=== PATIENT | female | born 1950 | race Caucasian/White ===

== ENCOUNTER → 2019-05-31 | Outpatient (CLI) | payer MEDICARE, OTHER ==
[2019-06-02 15:07] LABS: HPV 16 Negative (Negative); HPV 18 Negative (Negative); HPV OTHER HR TYPES Negative (Negative)
== END | disposition home or self-care (01) ==
LOC: LAB 10:53 → LAB SHORT 10:53
PROVIDERS: Advanced Practice Midwife
DX: Z01.419 Encounter for gynecological examination (general) (routine) without abnormal findings (principal)
CPT/HCPCS: 87624; G0123

== ENCOUNTER → 2019-07-15 | Outpatient (CLI) | payer MEDICARE, OTHER | END | disposition home or self-care (01) | LOC: PLD 11:50 → LAB SHORT 11:50 | DX: D48.5 Neoplasm of uncertain behavior of skin (principal) | CPT/HCPCS: 88305 ==

== ENCOUNTER → 2020-03-29 | Outpatient (CLI) | payer MEDICARE, OTHER ==
[2020-03-29 15:06] LABS: Adenovirus F 40/41 Not Detected (NOT DETECT); Astrovirus Not Detected (NOT DETECT); Campylobacter Sp Not Detected (NOT DETECT); Cryptosporidium Not Detected (NOT DETECT); Cyclospora Cayetanensis Not Detected (NOT DETECT); E. Coli O157 Not Detected (NOT DETECT); Entamoeba Histolytica Not Detected (NOT DETECT); Enteroaggregative E. coli-EAEC Not Detected (NOT DETECT); Enteropathogenic E. coli-EPEC Not Detected (NOT DETECT); Enterotoxigenic E. coli-ETEC Not Detected (NOT DETECT); Giardia Lamblia Not Detected (NOT DETECT); Norovirus GI/GII Not Detected (NOT DETECT); Plesiomonas Shigelloides Not Detected (NOT DETECT); Rotavirus A Not Detected (NOT DETECT); Salmonella Sp Not Detected (NOT DETECT); Sapovirus Not Detected (NOT DETECT); Shiga Toxin-prod E. coli-STEC Not Detected (NOT DETECT); Shigella/Enteroin E. coli-EIEC Not Detected (NOT DETECT); Vibrio Cholerae Not Detected (NOT DETECT); Vibrio Sp Not Detected (NOT DETECT); Yersinia Enterocolitica Not Detected (NOT DETECT)
== END ==
LOC: LAB 13:41 → LAB SHORT 13:41
PROVIDERS: Emergency Medicine
DX: R19.7 Diarrhea, unspecified (principal)
CPT/HCPCS: 0097U

== ENCOUNTER 2022-01-24 18:16 | Emergency (ER) | payer MEDICARE ==
[~2022-01-24] VITALS: Ht 170.2 cm; Wt 72.6 kg
[2022-01-24 20:41] LABS: Source, Urine Clean Catch
[2022-01-24 20:44] LABS: Appearance, Urine Hazy (Clear); Bilirubin, Urine Neg (Neg); Blood, Urine 2+ (Neg); Color, Urine Yellow (P-Yellow); Glucose Qualitative, Urine Neg (Neg); Ketones, Urine Neg (Neg); Leukocyte Esterase, Urine 2+ (Neg); Nitrite, Urine Pos (Neg); Protein, Urine 1+ (Neg); Urobilinogen, Urine NORM (Normal); pH, Urine 6.5 (5.0-8.0)
[2022-01-24 20:50] LABS: Bacteria Many /hpf; Hyaline Casts 0-2 /lpf (0-2); Squamous Epithelial Cells Few /hpf (Few)
[2022-01-24 22:40] LABS: Albumin, Blood 3.5 g/dL (3.4-5.0); Albumin/Globulin Ratio 0.9 (0.8-1.8); Bilirubin, Total 0.3 mg/dL (0.1-1.0); Bun/Creatinine Ratio 24.9 (12.0-20.0); Calcium, Blood 9.3 mg/dL (8.5-10.1); Creatinine, Blood 0.68 mg/dL (0.40-1.00); Potassium, Blood 4.5 mmol/L (3.5-5.5); Total Protein, Blood 7.5 g/dL (6.4-8.2)
[2022-01-24] MEDS ORDERED: CEPH500 PO (23:27)
[2022-01-25] MEDS ORDERED: CEPH500 PO (00:10)
[2022-01-25 00:51] LABS: Influenza A, PCR NEGATIVE (NEGATIVE); Influenza B, PCR NEGATIVE (NEGATIVE); Resp Syncytial Virus, PCR NEGATIVE (NEGATIVE); SARS-Cov-2 (COVID-19) PCR, MMC NEGATIVE (NEGATIVE)
== END 2022-01-25 00:15 | disposition home or self-care (01) ==
LOC: ER 18:16
PROVIDERS: Physician Assistant; Student in an Organized Health Care Education/Training Program
DX: N39.0 Urinary tract infection, site not specified (principal); R53.1 Weakness; Z88.5 Allergy status to narcotic agent; Z20.822 Contact with and (suspected) exposure to COVID-19
CPT/HCPCS: 0241U; 80053; 81001; 83735; 87077; 87086; 87186; 96360; 99284-25; A9270; J0696; J7030

== ENCOUNTER 2022-02-10 17:53 | Emergency (ER) | payer MEDICARE ==
[~2022-02-10] VITALS: Ht 170.2 cm; Wt 79.4 kg
[~2022-02-10 17:53] MED LIST: CEPH500 PO
[2022-02-10] MEDS ORDERED: OLAN2.5 PO (20:37)
[2022-02-10] MEDS ORDERED: CITALOPRAM HBR10 MG PO (20:37)
[2022-02-10] MEDS ORDERED: Diclofenac Sodi25 MG (20:37)
[2022-02-10] MEDS ORDERED: CODACE30 PO (20:38)
[2022-02-10] MEDS ORDERED: Primidone50 MG PO (20:38)
== END 2022-02-10 21:24 | disposition home or self-care (01) ==
LOC: ER 17:53
DX: S93.402A Sprain of unspecified ligament of left ankle, initial encounter (principal); W10.9XXA Fall (on) (from) unspecified stairs and steps, initial encounter; F03.90 Unspecified dementia, unspecified severity, without behavioral disturbance, psychotic disturbance, mood disturbance, and anxiety; Z88.5 Allergy status to narcotic agent; Z79.899 Other long term (current) drug therapy
CPT/HCPCS: 73610

== ENCOUNTER 2022-04-18 04:14 | Emergency (ER) | payer OTHER, MEDICARE ==
[~2022-04-18] VITALS: Ht 170.2 cm; Wt 77.1 kg
[~2022-04-18 04:14] MED LIST changes: +CITALOPRAM HBR10 MG PO; +CODACE30 PO; +Diclofenac Sodi25 MG; +OLAN2.5 PO; +Primidone50 MG PO
[2022-04-18 05:46] LABS: BASOPHILS ABSOLUTE AUTO 0.01 K/mm3 (0.00-0.23); BASOPHILS PERCENT AUTO 0 % (0-2); EOSINOPHILS ABSOLUTE AUTO 0.12 K/mm3 (0.00-0.68); EOSINOPHILS PERCENT AUTO 1 % (0-6); Hematocrit 38.2 % (33.0-51.0); Hemoglobin 12.5 g/dL (11.5-16.0); IMMATURE GRAN ABSOLUTE AUTO 0.03 K/mm3 (0.00-0.10); IMMATURE GRAN PERCENT AUTO 0 % (0-1); LYMPHOCYTES ABSOLUTE AUTO 2.57 K/mm3 (0.84-5.20); LYMPHOCYTES PERCENT AUTO 28 % (21-46); MONOCYTES ABSOLUTE AUTO 0.74 K/mm3 (0.16-1.47); MONOCYTES PERCENT AUTO 8 % (4-13); Mean Corpuscular HGB 29.8 pg (26.0-34.0); Mean Corpuscular HGB Conc 32.7 g/dL (31.5-36.5); Mean Corpuscular Volume 91 fL (80-100); Mean Platelet Volume 9.2 fL (9.1-12.4); NEUTROPHILS PERCENT AUTO 63 % (41-73); Platelet Count 269 K/mm3 (150-400); RDW Standard Deviation 43.7 fL (35.1-46.3); Red Blood Cell Count 4.19 M/mm3 (3.80-5.20); White Blood Cell Count 9.27 K/mm3 (4.00-11.30)
[2022-04-18 06:09] LABS: Albumin, Blood 3.5 g/dL (3.4-5.0); Albumin/Globulin Ratio 0.9 (0.8-1.8); Bilirubin, Total 0.3 mg/dL (0.1-1.0); Creatinine, Blood 0.69 mg/dL (0.40-1.00); Globulin, Blood 3.7 g/dL (2.2-4.0); Potassium, Blood 4.2 mmol/L (3.5-5.5); Total Protein, Blood 7.2 g/dL (6.4-8.2)
== END 2022-04-18 08:05 | disposition home or self-care (01) ==
LOC: ER 04:14
PROVIDERS: Student in an Organized Health Care Education/Training Program
DX: S01.81XA Laceration without foreign body of other part of head, initial encounter (principal); Z23 Encounter for immunization; Z88.5 Allergy status to narcotic agent; Z79.899 Other long term (current) drug therapy; W01.0XXA Fall on same level from slipping, tripping and stumbling without subsequent striking against object, initial encounter
CPT/HCPCS: 36415; 70450; 72125; 80053; 85025; 90714; 93005; 93010

== ENCOUNTER → 2023-02-27 | Outpatient (CLI) | payer MEDICARE ==
[2023-02-27 17:30] LABS: BASOPHILS PERCENT AUTO 0 % (0-2); EOSINOPHILS ABSOLUTE AUTO 0.12 K/mm3 (0.00-0.68); EOSINOPHILS PERCENT AUTO 2 % (0-6); Hematocrit 41.7 % (33.0-51.0); Hemoglobin 13.4 g/dL (11.5-16.0); IMMATURE GRAN ABSOLUTE AUTO 0.02 K/mm3 (0.00-0.10); IMMATURE GRAN PERCENT AUTO 0 % (0-1); LYMPHOCYTES ABSOLUTE AUTO 2.85 K/mm3 (0.84-5.20); LYMPHOCYTES PERCENT AUTO 35 % (21-46); MONOCYTES ABSOLUTE AUTO 0.55 K/mm3 (0.16-1.47); MONOCYTES PERCENT AUTO 7 % (4-13); Mean Corpuscular HGB 30.2 pg (26.0-34.0); Mean Corpuscular HGB Conc 32.1 g/dL (31.5-36.5); Mean Corpuscular Volume 94 fL (80-100); Mean Platelet Volume 10.3 fL (9.1-12.4); NEUTROPHILS ABSOLUTE AUTO 4.73 K/mm3 (1.96-9.15); NEUTROPHILS PERCENT AUTO 57 % (41-73); Platelet Count 264 K/mm3 (150-400); RDW Coefficient Variation 12.5 % (11.7-14.2); RDW Standard Deviation 43.3 fL (35.1-46.3); Red Blood Cell Count 4.44 M/mm3 (3.80-5.20); White Blood Cell Count 8.27 K/mm3 (4.00-11.30)
[2023-02-27 18:34] LABS: Albumin, Blood 3.8 g/dL (3.4-5.0); Albumin/Globulin Ratio 1.1 (0.8-1.8); Bilirubin, Total 0.3 mg/dL (0.1-1.0); Bun/Creatinine Ratio 22.6 (12.0-20.0); Calcium, Blood 9.8 mg/dL (8.5-10.1); Creatinine, Blood 0.93 mg/dL (0.40-1.00); Globulin, Blood 3.4 g/dL (2.2-4.0); Potassium, Blood 4.5 mmol/L (3.5-5.5); Thyroid Stimulating Hormone 0.721 uIU/mL (0.360-4.800); Total Protein, Blood 7.2 g/dL (6.4-8.2)
== END ==
LOC: LAB SHORT 13:51 → LAB 13:51
PROVIDERS: Family Medicine
DX: R53.1 Weakness (principal)
CPT/HCPCS: 80053; 83036; 84443; 85025

== ENCOUNTER 2023-04-15 07:30 | Inpatient (IN) | payer MEDICARE, OTHER ==
[2023-04-15] VITALS (16 sets, daily range): BP systolic 106–148; BP diastolic 46–81
[~2023-04-15] VITALS: Ht 167.6 cm; Wt 88.0 kg
[2023-04-15] MEDS ORDERED: Celexa20 MG PO (07:46)
[2023-04-15] MEDS ORDERED: Diclofenac Sod100 MG PO (07:47)
[2023-04-15] MEDS ORDERED: Primidone50 MG PO (07:47)
[2023-04-15] MEDS ORDERED: NASACORT10.8 ML NS (07:47)
[2023-04-15] MEDS ORDERED: ACET500 PO (07:48)
[2023-04-15] MEDS ORDERED: Vitamin B Comple1 EA PO (07:48)
[2023-04-15] MEDS ORDERED: MEMA5TAB PO (07:48)
[2023-04-15] MEDS ORDERED: OLAN5 PO (07:48)
[2023-04-15] MEDS ORDERED: ALBU8HFA2 INH (07:49)
[2023-04-15] MEDS ORDERED: METAMUCIL POWD798 GM PO (07:50)
[2023-04-15] MEDS ORDERED: LOMOTIL 2.5-0.1 EACH PO (07:50)
[2023-04-15] MEDS ORDERED: OLAN2.5 PO (07:50)
[2023-04-15] MEDS ORDERED: LIDO700A20 TOP (08:26)
[2023-04-15 09:24] LABS: BASOPHILS ABSOLUTE AUTO 0.01 K/mm3 (0.00-0.23); BASOPHILS PERCENT AUTO 0 % (0-2); EOSINOPHILS ABSOLUTE AUTO 0.01 K/mm3 (0.00-0.68); EOSINOPHILS PERCENT AUTO 0 % (0-6); Hematocrit 42.8 % (33.0-51.0); Hemoglobin 13.8 g/dL (11.5-16.0); IMMATURE GRAN ABSOLUTE AUTO 0.03 K/mm3 (0.00-0.10); IMMATURE GRAN PERCENT AUTO 0 % (0-1); LYMPHOCYTES ABSOLUTE AUTO 3.41 K/mm3 (0.84-5.20); LYMPHOCYTES PERCENT AUTO 33 % (21-46); MONOCYTES ABSOLUTE AUTO 0.57 K/mm3 (0.16-1.47); MONOCYTES PERCENT AUTO 6 % (4-13); Mean Corpuscular HGB 29.9 pg (26.0-34.0); Mean Corpuscular HGB Conc 32.2 g/dL (31.5-36.5); Mean Corpuscular Volume 93 fL (80-100); Mean Platelet Volume 9.7 fL (9.1-12.4); NEUTROPHILS ABSOLUTE AUTO 6.35 K/mm3 (1.96-9.15); NEUTROPHILS PERCENT AUTO 61 % (41-73); Platelet Count 271 K/mm3 (150-400); RDW Coefficient Variation 12.9 % (11.7-14.2); RDW Standard Deviation 43.9 fL (35.1-46.3); Red Blood Cell Count 4.61 M/mm3 (3.80-5.20); White Blood Cell Count 10.38 K/mm3 (4.00-11.30)
[2023-04-15 09:38] LABS: Albumin, Blood 3.6 g/dL (3.4-5.0); Albumin/Globulin Ratio 0.9 (0.8-1.8); Bilirubin, Total 0.4 mg/dL (0.1-1.0); Bun/Creatinine Ratio 25.5 (12.0-20.0); Calcium, Blood 9.5 mg/dL (8.5-10.1); Creatinine, Blood 0.86 mg/dL (0.40-1.00); Potassium, Blood 4.5 mmol/L (3.5-5.5); Total Protein, Blood 7.6 g/dL (6.4-8.2)
[2023-04-15 10:03] LABS: International Normalized Ratio 1.01; Prothrombin Time Results 10.6 Sec (9.7-11.5)
[2023-04-15 10:42] LABS: Bilirubin, Urine Neg (Neg); Blood, Urine 2+ (Neg); Glucose Qualitative, Urine Neg (Neg); Ketones, Urine Neg (Neg); Leukocyte Esterase, Urine Neg (Neg); Nitrite, Urine Pos (Neg); Protein, Urine Neg (Neg); Source, Urine Foley catheter; Specific Gravity, Urine 1.015 (1.003-1.022); Urobilinogen, Urine NORM (Normal)
[2023-04-15 10:53] LABS: Appearance, Urine Hazy (Clear); Color, Urine Yellow (P-Yellow)
[2023-04-15 10:54] LABS: Bacteria Few /hpf; Squamous Epithelial Cells Few /hpf (Few); White Blood Cells, Urine 0-2 /hpf (0-5)
[2023-04-15] MEDS ORDERED: VITAMIN D350 MC3 PO (14:13)
--- NOTE | 2023-04-15 14:59 | NUR ---
PT TO PRE OP
--- NOTE | 2023-04-15 16:40 | NUR ---
04/15/23 Brittney Cabrera PT HAD POZO CATHETER IN PLACE UPON ENTRY TO OR.
--- NOTE | 2023-04-15 18:31 | NUR ---
PT ARRIVED TO RM 214 FROM PACU IN BED. SLEEPY BUT OPENS EYES TO VOICE. VSS. DRESSINGS TO L HIP CDI. BED ALARM ON, CALL LIGHT IN REACH.
[2023-04-16 02:31] VITALS: BP 102/58
[2023-04-16 03:55] VITALS: BP 110/52
[2023-04-16 04:52] LABS: BASOPHILS ABSOLUTE AUTO 0.01 K/mm3 (0.00-0.23); BASOPHILS PERCENT AUTO 0 % (0-2); EOSINOPHILS PERCENT AUTO 0 % (0-6); Hemoglobin 10.6 g/dL (11.5-16.0); IMMATURE GRAN ABSOLUTE AUTO 0.04 K/mm3 (0.00-0.10); IMMATURE GRAN PERCENT AUTO 0 % (0-1); LYMPHOCYTES ABSOLUTE AUTO 2.02 K/mm3 (0.84-5.20); LYMPHOCYTES PERCENT AUTO 18 % (21-46); MONOCYTES ABSOLUTE AUTO 0.78 K/mm3 (0.16-1.47); MONOCYTES PERCENT AUTO 7 % (4-13); Mean Corpuscular HGB 30.3 pg (26.0-34.0); Mean Corpuscular HGB Conc 33.1 g/dL (31.5-36.5); Mean Corpuscular Volume 91 fL (80-100); Mean Platelet Volume 9.9 fL (9.1-12.4); NEUTROPHILS ABSOLUTE AUTO 8.21 K/mm3 (1.96-9.15); NEUTROPHILS PERCENT AUTO 74 % (41-73); Platelet Count 204 K/mm3 (150-400); RDW Standard Deviation 42.7 fL (35.1-46.3); White Blood Cell Count 11.06 K/mm3 (4.00-11.30)
[2023-04-16 05:37] LABS: Bun/Creatinine Ratio 29.3 (12.0-20.0); Calcium, Blood 8.5 mg/dL (8.5-10.1); Creatinine, Blood 0.92 mg/dL (0.40-1.00); Potassium, Blood 4.3 mmol/L (3.5-5.5)
--- NOTE | 2023-04-16 06:40 | NUR ---
SHIFT SUMMARY PT IS POD#1 FOR LEFT HIP FX (INTERMEDULLARY TROCHANTERIC NAIL). PT IS FROM [facility] AND SHE HAS NOT RESPONDED TO VERBAL INTERACTIONS MUCH THIS SHIFT AND SEEMS TO RESPOND BETTER TO FEMALE STAFF THAN THIS RN. PT REPEATEDLY REMOVED HER O2 NC AND HER OXYGEN SATURATION WOULD DIP INTO THE MID 80'S. JONN GALE WENT INTO THE PT'S ROOM SEVERAL TIMES TO ASSIST THE PT IN KEEPING HER OXYGEN ON. URINE OUTPUT HAS BEEN A GAFFNEY YELLOW COLOR. POST OP VS HAVE BEEN STABLE. PT REQUIRES EATING/DRINKING SUPERVISION, BUT TOOK HER MEDICATIONS WELL WITH SMALL SIPS OF WATER. PT HAD AN EARLY IN THE SHIFT COMPLAINT OF NAUSEA, BUT NO OTHER COMPLAINTS THROUGHOUT THE SHIFT.
[2023-04-16 07:35] VITALS: BP 109/58
[2023-04-16 14:47] VITALS: BP 108/59
--- NOTE | 2023-04-16 15:15 | NUR ---
SHIFT SUMMARY: POD 1 LEFT HIP PINNING PATIENT IS A&O TO SELF WITH HX OF DEMENTIA. PATIENT CAN FOLLOW BASIC COMMANDS AND RESPONDS WITH GRUNTING/MOANING. PAIN IS MANAGED WITH PO TYLENOL. HER LEFT HIP HAS AN AQUACEL THAT IS C/D/I. SHE IS A 2 PERSON SBA WITH FWW AND CONSTANT INSTRUCTIONS GIVEN. PATIENT IS TOLERATING PO INTAKE, BUT HAS TO BE GIVEN SMALL BITES TO AVOID CHOKING. PATIENT HAS BEEN SITTING UP IN THE RECLINER MOST OF THIS SHIFT AND IS TOLERATING IT WELL. SHE IS LAYING IN RECLINER WITH LEGS ELEVATED AND CALL LIGHT WITHIN REACH WELL TAB ALARM IN PLACE.
[2023-04-16 19:26] VITALS: BP 125/51
[2023-04-17 02:52] VITALS: BP 115/56
--- NOTE | 2023-04-17 04:30 | NUR ---
SHIFT SUMMARY POD 2 L HIP PINNING PT RESTED T/O NIGHT. PT UNABLE TO VOID, BLADDER SCANNED AT 2330, 530mL. HAD TO STRAIGHT CATH, HAD 600mL OUT, PT TOLERATED WELL. PAIN MANAGED PER EMAR. AQUACEL TO L HIP WITH SOME LIGHT DRAINAGE AND INTACT, AQUACEL TO L THIGH C/D/I. VSS. NO OTHER CONCERNS AT THIS TIME. CALL LIGHT WITHIN REACH.
[2023-04-17 04:55] LABS: BASOPHILS ABSOLUTE AUTO 0.01 K/mm3 (0.00-0.23); BASOPHILS PERCENT AUTO 0 % (0-2); EOSINOPHILS PERCENT AUTO 0 % (0-6); Hematocrit 28.7 % (33.0-51.0); Hemoglobin 9.3 g/dL (11.5-16.0); IMMATURE GRAN ABSOLUTE AUTO 0.04 K/mm3 (0.00-0.10); IMMATURE GRAN PERCENT AUTO 0 % (0-1); LYMPHOCYTES ABSOLUTE AUTO 2.68 K/mm3 (0.84-5.20); LYMPHOCYTES PERCENT AUTO 26 % (21-46); MONOCYTES ABSOLUTE AUTO 1.04 K/mm3 (0.16-1.47); MONOCYTES PERCENT AUTO 10 % (4-13); Mean Corpuscular HGB 30.3 pg (26.0-34.0); Mean Corpuscular HGB Conc 32.4 g/dL (31.5-36.5); Mean Corpuscular Volume 94 fL (80-100); Mean Platelet Volume 9.8 fL (9.1-12.4); NEUTROPHILS ABSOLUTE AUTO 6.44 K/mm3 (1.96-9.15); NEUTROPHILS PERCENT AUTO 63 % (41-73); Platelet Count 146 K/mm3 (150-400); RDW Standard Deviation 44.3 fL (35.1-46.3); Red Blood Cell Count 3.07 M/mm3 (3.80-5.20); White Blood Cell Count 10.21 K/mm3 (4.00-11.30)
[2023-04-17 05:26] LABS: Bun/Creatinine Ratio 30.4 (12.0-20.0); Calcium, Blood 8.3 mg/dL (8.5-10.1); Creatinine, Blood 0.85 mg/dL (0.40-1.00); Potassium, Blood 3.9 mmol/L (3.5-5.5)
[2023-04-17 07:04] VITALS: BP 103/52
[2023-04-17 14:56] VITALS: BP 107/65
--- NOTE | 2023-04-17 19:23 | NUR ---
SHIFT SUMMARY POD2 L HIP PINNING, A/OX 1-2, VSS, TOLERATING PO BUT WAS HAVING DIFFICULTY CHEWING WHOLE CHICKEN BREAST, DIET ORDER CHANGED TO [facility] SOFT, UP TO CHAIR WITH 2 PERSON MODERATE ASSIST, DOES NOT FOLLOW WEIGHT BEARING STATUS, STAND PIVOT TO CHAIR, PIAN MANAGED PER EMAR. NO ACUTE EVENTS THIS SHIFT, CALL LIGHT IN REACH.
[2023-04-17 19:24] VITALS: BP 112/63
[2023-04-18 04:29] VITALS: BP 112/71
[2023-04-18 06:05] LABS: BASOPHILS ABSOLUTE AUTO 0.01 K/mm3 (0.00-0.23); BASOPHILS PERCENT AUTO 0 % (0-2); EOSINOPHILS ABSOLUTE AUTO 0.01 K/mm3 (0.00-0.68); EOSINOPHILS PERCENT AUTO 0 % (0-6); Hematocrit 27.3 % (33.0-51.0); Hemoglobin 8.9 g/dL (11.5-16.0); IMMATURE GRAN ABSOLUTE AUTO 0.03 K/mm3 (0.00-0.10); IMMATURE GRAN PERCENT AUTO 0 % (0-1); LYMPHOCYTES ABSOLUTE AUTO 2.94 K/mm3 (0.84-5.20); LYMPHOCYTES PERCENT AUTO 32 % (21-46); MONOCYTES ABSOLUTE AUTO 0.83 K/mm3 (0.16-1.47); MONOCYTES PERCENT AUTO 9 % (4-13); Mean Corpuscular HGB 30.1 pg (26.0-34.0); Mean Corpuscular HGB Conc 32.6 g/dL (31.5-36.5); Mean Corpuscular Volume 92 fL (80-100); Mean Platelet Volume 9.7 fL (9.1-12.4); NEUTROPHILS ABSOLUTE AUTO 5.27 K/mm3 (1.96-9.15); NEUTROPHILS PERCENT AUTO 58 % (41-73); Platelet Count 175 K/mm3 (150-400); RDW Coefficient Variation 12.9 % (11.7-14.2); RDW Standard Deviation 43.4 fL (35.1-46.3); Red Blood Cell Count 2.96 M/mm3 (3.80-5.20); White Blood Cell Count 9.09 K/mm3 (4.00-11.30)
[2023-04-18 06:33] LABS: Bun/Creatinine Ratio 21.6 (12.0-20.0); Calcium, Blood 8.4 mg/dL (8.5-10.1); Creatinine, Blood 0.79 mg/dL (0.40-1.00); Potassium, Blood 3.6 mmol/L (3.5-5.5)
[2023-04-18 07:08] VITALS: BP 133/69
--- NOTE | 2023-04-18 07:08 | NUR ---
SHIFT SUMMARY PT DID WELL OVERNIGHT WITH NO ACUTE EVENTS OCCURRING. PT ABLE TO FREELY URINATE AFTER BEING BLADDER SCANNED EARLIER IN THE MORNING. VSS. BED IS IN LOWEST POSITION, CALL LIGHT IS WITHIN REACH.
[2023-04-18 14:51] VITALS: BP 130/57
--- NOTE | 2023-04-18 15:46 | NUR ---
SHIFT SUMMARY: POD 3 LEFT HIP PINNING NO SIGNIFICANT CHANGES DURING SHIFT. PATIENT IS ABLE TO MAKE NEEDS KNOWN AND IS SPEAKING FULL SENTENCES WITH OCCASIONAL GRUNTS. PAIN IS MANAGED WITH TYLENOL PO. HER LEFT HIP HAS X2 AQUACELS THAT WERE CHANGED THIS MORNING AND ARE C/D/I. SHE IS A 2 PERSON ASSIST WITH FWW AND GAIT BELT. PATIENT TOLERATED BEING IN RECLINER CHAIR. SHE IS NOW LAYING IN BED WITH CALL LIGHT IN REACH. PATIENT IS VOIDING AND HAD A BM THIS MORNING. THE PLAN IS TO DISCHARGE BACK TO HER FACILITY AT [facility] ON FRIDAY WITH HOME HEALTH IF STILL APPROPRIATE.
[2023-04-18 19:38] VITALS: BP 123/59
[2023-04-19 05:07] VITALS: BP 114/63
--- NOTE | 2023-04-19 05:54 | NUR ---
NOC SHIFT SUMMARY: PT. WILL DISCHARGE BACK TO [place] ON FRIDAY. PATIENT IS ALERT TO SELF ONLY. PATIENT A 2 PERSON ASSIST. NO C/O PAIN. INCONTINENT OF BOWEL AND BLADDER.
[2023-04-19 07:08] VITALS: BP 131/63
[2023-04-19 08:26] LABS: BASOPHILS ABSOLUTE AUTO 0.01 K/mm3 (0.00-0.23); BASOPHILS PERCENT AUTO 0 % (0-2); EOSINOPHILS ABSOLUTE AUTO 0.01 K/mm3 (0.00-0.68); EOSINOPHILS PERCENT AUTO 0 % (0-6); Hemoglobin 9.8 g/dL (11.5-16.0); IMMATURE GRAN ABSOLUTE AUTO 0.03 K/mm3 (0.00-0.10); IMMATURE GRAN PERCENT AUTO 0 % (0-1); LYMPHOCYTES ABSOLUTE AUTO 2.51 K/mm3 (0.84-5.20); LYMPHOCYTES PERCENT AUTO 27 % (21-46); MONOCYTES ABSOLUTE AUTO 0.88 K/mm3 (0.16-1.47); MONOCYTES PERCENT AUTO 10 % (4-13); Mean Corpuscular HGB 30.2 pg (26.0-34.0); Mean Corpuscular HGB Conc 32.7 g/dL (31.5-36.5); Mean Corpuscular Volume 93 fL (80-100); Mean Platelet Volume 9.9 fL (9.1-12.4); NEUTROPHILS ABSOLUTE AUTO 5.83 K/mm3 (1.96-9.15); NEUTROPHILS PERCENT AUTO 63 % (41-73); Platelet Count 212 K/mm3 (150-400); RDW Coefficient Variation 12.6 % (11.7-14.2); RDW Standard Deviation 42.5 fL (35.1-46.3); Red Blood Cell Count 3.24 M/mm3 (3.80-5.20); White Blood Cell Count 9.27 K/mm3 (4.00-11.30)
[2023-04-19 14:58] VITALS: BP 107/65
--- NOTE | 2023-04-19 16:06 | NUR ---
SHIFT SUMMARY PT A&O1, VSS/RA, MIKAEL PO-FULL MEAL ASSIST, VOIDING/INCONTINENT, PAIN MANAGED WITH TYLENOL, REPOSITIONED, PLEASANT & COOPERATIVE WITH CARE. WILL REPORT TO ONCOMING RN.
[2023-04-19 19:30] VITALS: BP 136/70
[2023-04-20 04:01] VITALS: BP 121/63
[2023-04-20 04:27] LABS: BASOPHILS ABSOLUTE AUTO 0.01 K/mm3 (0.00-0.23); BASOPHILS PERCENT AUTO 0 % (0-2); EOSINOPHILS ABSOLUTE AUTO 0.02 K/mm3 (0.00-0.68); EOSINOPHILS PERCENT AUTO 0 % (0-6); Hematocrit 30.9 % (33.0-51.0); Hemoglobin 10.1 g/dL (11.5-16.0); IMMATURE GRAN ABSOLUTE AUTO 0.04 K/mm3 (0.00-0.10); IMMATURE GRAN PERCENT AUTO 1 % (0-1); LYMPHOCYTES ABSOLUTE AUTO 2.58 K/mm3 (0.84-5.20); LYMPHOCYTES PERCENT AUTO 29 % (21-46); MONOCYTES ABSOLUTE AUTO 0.94 K/mm3 (0.16-1.47); MONOCYTES PERCENT AUTO 11 % (4-13); Mean Corpuscular HGB 30.2 pg (26.0-34.0); Mean Corpuscular HGB Conc 32.7 g/dL (31.5-36.5); Mean Corpuscular Volume 93 fL (80-100); Mean Platelet Volume 10.2 fL (9.1-12.4); NEUTROPHILS ABSOLUTE AUTO 5.19 K/mm3 (1.96-9.15); NEUTROPHILS PERCENT AUTO 59 % (41-73); Platelet Count 239 K/mm3 (150-400); Red Blood Cell Count 3.34 M/mm3 (3.80-5.20); White Blood Cell Count 8.78 K/mm3 (4.00-11.30)
--- NOTE | 2023-04-20 04:58 | NUR ---
SUMMARY NO NEW ISSUES NOTED. PT HAS SLEPT THROUGHOUT THE SHIFT. PT HAS BEEN VOIDING WELL AND BRIEF CHANGED NEEDED. PT DRESSINGS ARE CLEAN AND INTACT. PT DISCOMFORT HAS BEEN MANAGED WELL. CALL LIGHT IN REACH AND BED ALARM ON.
[2023-04-20 07:21] VITALS: BP 105/69
[2023-04-20 15:25] VITALS: BP 135/67
--- NOTE | 2023-04-20 17:09 | NUR ---
SHIFT SUMMARY PT A&O1, VSS/RA, MIKAEL PO-FULL MEAL ASSIST/NAUSEATED AND TREATED WITH PHENERGAN 12.5 X1, VOIDING/INCONTINENT, PAIN MANAGED WITH TYLENOL, REPOSITIONED, PLEASANT & COOPERATIVE WITH CARE. WILL REPORT TO ONCOMING RN.
[2023-04-20 20:04] VITALS: BP 129/61
[2023-04-21 03:55] VITALS: BP 124/56
--- NOTE | 2023-04-21 05:24 | NUR ---
SUMMARY PT HAS HAD SOME NAUSEA, NO VOMITING. PT IS DRINKING PO FLUIDS WELL. PT IS VOIDING WELL. PT BRIEF CHANGED NEEDED. PT DRESSING IS C/D/I. PT RESPONDED WELL TO PO PHENERGAN. PT CURRENTLY SLEEPING IN NO DISTRESS. CALL LIGHT IN REACH AND BED ALARM ON.
[2023-04-21 07:25] VITALS: BP 151/95
--- NOTE | 2023-04-21 12:37 | NUR ---
DISCHARGE SUMMARY PT PICKED UP VIA BY [facility]. HER DAUGHTER JENNIE IN CLOTHES FOR HER TO GO HOME IN WHICH NURSING STAFF ASSISTED HER IN GETTING DRESSED. DRESSING ON L HIP CHANGED JUST BEFORE DISCHARGE. PATIENT PACKET GIVEN TO [facility]. PT TRANSFERRED TO WITH 2 STAFF ASSISTANCE. PT LEFT VIA TO [facility] TO GO HOME.
--- NOTE | 2023-04-21 12:58 | NUR ---
DISCHARGE PT DISCHARGED TO [facility] AT APPROXIMATELY 1130. [facility]ORT RECEIVED THE PT. PT'S PAIN MEDICATED PER EMR, DRESSING CHANGED PRIOR TO D/C. BREATHING UNLABORED AND EVEN. PT AFEBRILE.
== END 2023-04-21 11:47 | disposition home or self-care (01) | DRG 481 ==
LOC: ER 07:30 → SURS 09:56
PROVIDERS: Emergency Medicine; Family Medicine; Orthopaedic Surgery; Student in an Organized Health Care Education/Training Program; ADMIT Internal Medicine
PROC: 0QS704Z Reposition Left Upper Femur with Internal Fixation Device, Open Approach (ICD-10-PCS; principal; 2023-04-15 15:30)
DX: S72.142A Displaced intertrochanteric fracture of left femur, initial encounter for closed fracture (principal); N39.0 Urinary tract infection, site not specified; G30.9 Alzheimer's disease, unspecified; F02.80 Dementia in other diseases classified elsewhere, unspecified severity, without behavioral disturbance, psychotic disturbance, mood disturbance, and anxiety; W18.30XA Fall on same level, unspecified, initial encounter; D64.89 Other specified anemias; B96.20 Unspecified Escherichia coli [E. coli] as the cause of diseases classified elsewhere; Z88.5 Allergy status to narcotic agent; Z79.899 Other long term (current) drug therapy; Z79.51 Long term (current) use of inhaled steroids; Z87.19 Personal history of other diseases of the digestive system; Z98.890 Other specified postprocedural states; Z88.8 Allergy status to other drugs, medicaments and biological substances
CPT/HCPCS: 36415; 51701; 51702; 73502; 80048; 80053; 81001; 83735; 85025; 85610; 85730; 87077; 87086; 87186; 93005; 93010; 94640; 94664; 94760; 94762; 96374; 96375; 97110; 97162; 97166; 97530; 99285-25; A9270; C1713; C1769; J0690; J0780; J1100; J1170; J1650; J2405; J2704; J3010; J3480; J7120

== ENCOUNTER 2023-04-27 12:49 | Emergency (ER) | payer MEDICARE, OTHER ==
[~2023-04-27] VITALS: Ht 172.7 cm; Wt 86.2 kg
[~2023-04-27 12:49] MED LIST changes: +ACET500 PO; +ALBU8HFA2 INH; +Celexa20 MG PO; +Diclofenac Sod100 MG PO; +LIDO700A20 TOP; +LOMOTIL 2.5-0.1 EACH PO; +MEMA5TAB PO; +METAMUCIL POWD798 GM PO; +NASACORT10.8 ML NS; +OLAN5 PO; +VITAMIN D350 MC3 PO; +Vitamin B Comple1 EA PO
[2023-04-27 14:38] VITALS: BP 114/57
== END 2023-04-27 14:40 | disposition home or self-care (01) ==
LOC: ER 12:49
DX: T17.928A Food in respiratory tract, part unspecified causing other injury, initial encounter (principal); G30.9 Alzheimer's disease, unspecified; F02.80 Dementia in other diseases classified elsewhere, unspecified severity, without behavioral disturbance, psychotic disturbance, mood disturbance, and anxiety; F01.50 Vascular dementia, unspecified severity, without behavioral disturbance, psychotic disturbance, mood disturbance, and anxiety; Z88.5 Allergy status to narcotic agent; Z79.899 Other long term (current) drug therapy
CPT/HCPCS: 71045; 99283-25

== ENCOUNTER → 2023-04-29 | Outpatient (CLI) | payer MEDICARE, OTHER ==
[2023-04-29 15:52] LABS: Hematocrit 33.7 % (33.0-51.0); Hemoglobin 10.4 g/dL (11.5-16.0); Mean Corpuscular HGB 29.8 pg (26.0-34.0); Mean Corpuscular HGB Conc 30.9 g/dL (31.5-36.5); Mean Corpuscular Volume 97 fL (80-100); Mean Platelet Volume 10.2 fL (9.1-12.4); Platelet Count 316 K/mm3 (150-400); RDW Coefficient Variation 13.8 % (11.7-14.2); RDW Standard Deviation 48.3 fL (35.1-46.3); Red Blood Cell Count 3.49 M/mm3 (3.80-5.20)
[2023-04-29 16:12] LABS: Albumin/Globulin Ratio 0.8 (0.8-1.8); Bilirubin, Total 0.5 mg/dL (0.1-1.0); Calcium, Blood 9.2 mg/dL (8.5-10.1); Creatinine, Blood 0.86 mg/dL (0.40-1.00); Globulin, Blood 3.7 g/dL (2.2-4.0); Potassium, Blood 3.8 mmol/L (3.5-5.5); Total Protein, Blood 6.7 g/dL (6.4-8.2)
== END | disposition home or self-care (01) ==
LOC: LAB 10:21 → LAB SHORT 10:21
PROVIDERS: Family Medicine
DX: N39.0 Urinary tract infection, site not specified (principal); D64.9 Anemia, unspecified
CPT/HCPCS: 80053; 85027

== ENCOUNTER → 2023-10-01 | Outpatient (CLI) | payer MEDICARE, OTHER ==
[~2023-10-01] MED LIST changes: +XARELTO20 MG PO
[2023-10-01 18:45] LABS: BASOPHILS PERCENT AUTO 0 % (0-2); EOSINOPHILS PERCENT AUTO 0 % (0-6); Hematocrit 40.1 % (33.0-51.0); Hemoglobin 12.8 g/dL (11.5-16.0); IMMATURE GRAN ABSOLUTE AUTO 0.02 K/mm3 (0.00-0.10); IMMATURE GRAN PERCENT AUTO 0 % (0-1); LYMPHOCYTES ABSOLUTE AUTO 3.34 K/mm3 (0.84-5.20); LYMPHOCYTES PERCENT AUTO 38 % (21-46); MONOCYTES ABSOLUTE AUTO 0.67 K/mm3 (0.16-1.47); MONOCYTES PERCENT AUTO 8 % (4-13); Mean Corpuscular HGB 28.7 pg (26.0-34.0); Mean Corpuscular HGB Conc 31.9 g/dL (31.5-36.5); Mean Corpuscular Volume 90 fL (80-100); Mean Platelet Volume 10.8 fL (9.1-12.4); NEUTROPHILS ABSOLUTE AUTO 4.67 K/mm3 (1.96-9.15); NEUTROPHILS PERCENT AUTO 54 % (41-73); Platelet Count 236 K/mm3 (150-400); RDW Coefficient Variation 14.4 % (11.7-14.2); Red Blood Cell Count 4.46 M/mm3 (3.80-5.20)
[2023-10-02 17:54] LABS: Alanine Aminotransfer (ALT/SGP 20 U/L (12-78); Albumin, Blood 3.1 g/dL (3.4-5.0); Albumin/Globulin Ratio 0.9 (0.8-1.8); Alk Phos 163 U/L (50-136); Anion Gap 8 mmol/L (3-11); Aspartate Aminotrans (AST/SGOT 23 U/L (12-37); Bilirubin, Total 0.2 mg/dL (0.1-1.0); Blood Urea Nitrogen 10 mg/dL (8-24); Bun/Creatinine Ratio 13.9 (12.0-20.0); CHOL/HDL RATIO 3.4; CO2, Blood 29 mmol/L (21-32); Calcium, Blood 9.2 mg/dL (8.5-10.1); Chloride, Blood 110 mmol/L (98-108); Cholesterol 150 mg/dL (50-200); Creatinine, Blood 0.72 mg/dL (0.40-1.00); Globulin, Blood 3.3 g/dL (2.2-4.0); Glomerular Filtration Rate 88 (60-); Glucose, Blood 99 mg/dL (70-99); HDL Cholesterol 44 mg/dL (>39); LDL/HDL RATIO 1.9; Low Density Lipoprotein Chol 82 mg/dL (0-110); Potassium, Blood 4.3 mmol/L (3.5-5.5); Sodium, Blood 143 mmol/L (136-145); Total Protein, Blood 6.4 g/dL (6.4-8.2); Triglycerides 121 mg/dL (30-160); Very Low Density Lipoprot Chol 24 mg/dL (6-32)
[2023-10-02 17:58] LABS: Thyroid Stimulating Hormone 0.832 uIU/mL (0.360-4.800)
== END ==
LOC: LAB 16:55 → LAB SHORT 16:55
PROVIDERS: Family Medicine
DX: G31.09 Other frontotemporal neurocognitive disorder (principal); I10 Essential (primary) hypertension
CPT/HCPCS: 80053; 80061; 84443; 85025

== ENCOUNTER 2023-10-14 14:17 | Emergency (ER) | payer MEDICARE, OTHER ==
[~2023-10-14] VITALS: Ht 172.7 cm; Wt 81.7 kg
[~2023-10-14 14:17] MED LIST changes: -XARELTO20 MG PO
[2023-10-14 14:18] VITALS: BP 133/78
[2023-10-14] MEDS ORDERED: XARELTO20 MG PO (16:46)
== END 2023-10-14 17:03 | disposition home or self-care (01) ==
LOC: ER 14:17
DX: I82.411 Acute embolism and thrombosis of right femoral vein (principal); I82.431 Acute embolism and thrombosis of right popliteal vein; Z51.5 Encounter for palliative care; G30.9 Alzheimer's disease, unspecified; F02.80 Dementia in other diseases classified elsewhere, unspecified severity, without behavioral disturbance, psychotic disturbance, mood disturbance, and anxiety; M81.0 Age-related osteoporosis without current pathological fracture; R29.6 Repeated falls; Z79.899 Other long term (current) drug therapy; Z88.5 Allergy status to narcotic agent
CPT/HCPCS: 99283